=== PATIENT | female | born 1965 | race Caucasian/White ===

== ENCOUNTER 2016-08-02 11:26 | Day surgery (SDC) | payer OTHER ==
[~2016-08-02] VITALS: Ht 157.5 cm; Wt 69.0 kg
[~2016-08-02 11:26] MED LIST: BUPIVACAINE/PF-EPI 0.25% 1:200K ONE
[2016-08-02] MEDS ORDERED: NO MEDICATION (12:01)
[2016-08-02 12:02] VITALS: BP 124/83
[2016-08-02] MEDS ORDERED: LACTATED RINGERS 1,000 ML IV SCH (12:57)
[2016-08-02] MEDS ORDERED: FENTANYL PF 250 MCG/5ML ONE (13:54)
[2016-08-02] MEDS ORDERED: MIDAZOLAM 1 MG/ML, 2ML ONE (13:54)
[2016-08-02] MEDS ORDERED: SUCCINYLCHOLINE 20 MG/ML, 10ML ONE (14:58)
[2016-08-02] MEDS ORDERED: ONDANSETRON 2MG/ML, 2ML ONE (14:58)
[2016-08-02] MEDS ORDERED: GLYCOPYRROLATE 0.2MG/1ML ONE (14:58)
[2016-08-02] MEDS ORDERED: ROCURONIUM 10 MG/ML ONE (14:58)
[2016-08-02] MEDS ORDERED: KETOROLAC 30 MG/1 ML ONE (14:58)
[2016-08-02] MEDS ORDERED: PROPOFOL 10 MG/ML, 20ML ONE (14:58)
[2016-08-02] MEDS ORDERED: DEXAMETHASONE 4 MG/ML, 1ML ONE (14:58)
[2016-08-02] MEDS ORDERED: NEOSTIGMINE 1 MG/ML, 10ML ONE (14:58)
[2016-08-02] MEDS ORDERED: CEFAZOLIN 1,000 MG ONE (14:58)
[2016-08-02] MEDS ORDERED: BUPIVACAINE/PF-EPI 0.25% 1:200K INFIL ONE (15:15)
[2016-08-02] MEDS ORDERED: HYDROmorphone 1 MG/ML, 1ML IV PRN (16:00)
[2016-08-02] MEDS ORDERED: METOPROLOL 1 MG/ML, 5ML IV PRN (16:00)
[2016-08-02] MEDS ORDERED: PROMETHAZINE 25 MG/ML, 1ML IV PRN (16:00)
[2016-08-02] MEDS ORDERED: MEPERIDINE/PF 25MG/0.5ML IVPush PRN (16:00)
[2016-08-02] MEDS ORDERED: ONDANSETRON 2MG/ML, 2ML IVPush PRN ×2 (16:00→17:30)
[2016-08-02] MEDS ORDERED: ACETAMINOPHEN 325 MG TABLET PO PRN (16:00)
[2016-08-02] MEDS ORDERED: MIDAZOLAM 1 MG/ML, 2ML IV PRN (16:00)
[2016-08-02] MEDS ORDERED: hydrALAzine 20 MG/ML, 1ML IV PRN (16:00)
[2016-08-02] MEDS ORDERED: LABETALOL 5MG/ML, 20ML IV PRN (16:00)
[2016-08-02] MEDS ORDERED: ALBUTEROL SULFATE 2.5 MG/3 ML NPPB PRN (16:00)
[2016-08-02] MEDS ORDERED: EPHEDRINE 50 MG/ML, 1ML IVPush PRN (16:00)
[2016-08-02] MEDS ORDERED: OXYcodone 5 MG/5 ML ORAL.SOL UDC PO PRN (16:00)
[2016-08-02] MEDS ORDERED: OXYcodone 5 MG/5 ML ORAL.SOL UDC ONE (16:25)
[2016-08-02] MEDS ORDERED: FENTANYL PF 100 MCG/2ML ONE (16:25)
[2016-08-02] MEDS: FENTANYL PF 100 MCG/2ML IV PRN ×2 (16:27→16:38)
[2016-08-02] MEDS ORDERED: OXYcodone/APAP 5/325MG TABLET PO PRN (17:30)
[2016-08-02] MEDS ORDERED: ONDANSETRON ODT 4 MG ONE (21:12)
== END 2016-08-02 21:25 | disposition home or self-care (01) ==
LOC: OUT 11:26
PROVIDERS: ATTEND Obstetrics & Gynecology Female Pelvic Medicine and Reconstructive Surgery
DX: D25.0 Submucous leiomyoma of uterus (principal); N80.0 Endometriosis of uterus; N72 Inflammatory disease of cervix uteri; N88.8 Other specified noninflammatory disorders of cervix uteri
CPT/HCPCS: 58552; 88307; J0330; J0690; J1100; J1885; J2250; J2405; J2704; J2710; J3010; J7120; J3490